=== PATIENT | female | born 1965 | race Caucasian/White ===

== ENCOUNTER → 2016-08-05 | Outpatient (REF) | payer OTHER, BC ==
[2016-08-05 12:24] LABS: ALBUMIN 4.1 GM/DL (3.2-5.2); ALBUMIN/GLOBULIN RATIO 1.52 (1.00-1.93); ALKALINE PHOSPHATASE 52 U/L (45-117); ALT/SGPT 19 U/L (12-78); ANION GAP 7 MEQ/L (8-16); AST/SGOT 10 U/L (15-37); BILIRUBIN,TOTAL 1.1 MG/DL (0.2-1.0); BLOOD UREA NITROGEN 15 MG/DL (7-18); CARBON DIOXIDE LEVEL 29 MEQ/L (21-32); CHLORIDE LEVEL 105 MEQ/L (98-107); CHOLESTEROL LEVEL 164 MG/DL (<200); CREATININE FOR GFR 0.81 MG/DL (0.55-1.02); GLOMERULAR FILTRATION RATE > 60.0 (>51); GLUCOSE, FASTING 109 MG/DL (70-105); POTASSIUM SERUM 4.3 MEQ/L (3.5-5.1); SODIUM LEVEL 141 MEQ/L (136-145); TOTAL PROTEIN 6.8 GM/DL (6.4-8.2); TRIGLYCERIDES LEVEL 112 MG/DL (<150)
[2016-08-05 12:29] LABS: MEAN CORPUSCULAR HEMOGLOBIN 29.8 pg (27.0-33.0); MEAN CORPUSCULAR VOLUME 87.5 fl (80.0-96.0); RED CELL DISTRIBUTION WIDTH 12.9 % (11.5-14.5); WHITE BLOOD COUNT 6.6 K/mm3 (4.0-10.0)
== END ==
LOC: M SFHCCLAY 08:12
PROVIDERS: ATTEND Family Medicine
DX: N02.8 Recurrent and persistent hematuria with other morphologic changes (principal); I10 Essential (primary) hypertension; E78.00 Pure hypercholesterolemia, unspecified

== ENCOUNTER → 2016-11-15 | Outpatient (REF) | payer OTHER, BC ==
[2016-11-15 12:07] LABS: ANION GAP 5 MEQ/L (8-16); BLOOD UREA NITROGEN 14 MG/DL (7-18); CALCIUM LEVEL 8.9 MG/DL (8.5-10.1); CARBON DIOXIDE LEVEL 32 MEQ/L (21-32); CHLORIDE LEVEL 103 MEQ/L (98-107); CREATININE FOR GFR 0.68 MG/DL (0.55-1.02); GLOMERULAR FILTRATION RATE > 60.0 (>51); GLUCOSE, FASTING 96 MG/DL (70-105); POTASSIUM SERUM 4.7 MEQ/L (3.5-5.1); SODIUM LEVEL 140 MEQ/L (136-145)
== END ==
LOC: M SFHCCLAY 08:07
PROVIDERS: ATTEND Family Medicine
DX: R73.01 Impaired fasting glucose (principal)

== ENCOUNTER → 2017-02-28 | Outpatient (CLI) | payer OTHER ==
--- NOTE | 2017-02-28 15:36 | REPMRS ---
Patient History The patient states she had a clinical breast exam in 11/04 No known family history of cancer. Took hormonal contraceptives for 10 years. Digital Woman Screen Mammo: February 28, 2017 - Exam #: [id number] Bilateral CC and MLO view(s) were taken. Technologist: Renetta Britton, Technologist Prior study comparison: February 20, 2016, digital woman screen mammo performed at [facility]. February 14, 2015, digital woman screen mammo performed at [facility]. FINDINGS: There are scattered fibroglandular densities. There has been no change in the appearance of the mammogram from the prior studies. There is a mild amount of residual fibroglandular tissue which is fairly symmetric. There is no interval development of dominant mass, architectural distortion, or clustered microcalcification suggestive of malignancy. ASSESSMENT: BI-RADS/ACR category 1 mammogram. Negative. Recommendation Routine screening mammogram in 1 year (for women over age 40). This mammogram was interpreted with the aid of an FDA-approved computer-aided dectection system. Electronically Signed By: Anand Lemons MD 02/28/17 [id number]
== END ==
LOC: M WHC 15:04
PROVIDERS: ATTEND Obstetrics & Gynecology
DX: Z12.31 Encounter for screening mammogram for malignant neoplasm of breast (principal)

== ENCOUNTER → 2017-07-16 | Outpatient (REF) | payer OTHER, BC ==
[2017-07-16 12:26] LABS: ALBUMIN 3.7 GM/DL (3.2-5.2); ALBUMIN/GLOBULIN RATIO 1.32 (1.00-1.93); ALKALINE PHOSPHATASE 45 U/L (45-117); ALT/SGPT 37 U/L (12-78); ANION GAP 7 MEQ/L (8-16); AST/SGOT 25 U/L (7-37); BILIRUBIN,TOTAL 1.2 MG/DL (0.2-1.0); BLOOD UREA NITROGEN 13 MG/DL (7-18); CALCIUM LEVEL 8.7 MG/DL (8.5-10.1); CARBON DIOXIDE LEVEL 29 MEQ/L (21-32); CHLORIDE LEVEL 104 MEQ/L (98-107); CHOLESTEROL LEVEL 186 MG/DL (<200); CREATININE FOR GFR 0.64 MG/DL (0.55-1.02); GLOMERULAR FILTRATION RATE > 60.0 (>51); GLUCOSE, FASTING 97 MG/DL (70-105); POTASSIUM SERUM 4.7 MEQ/L (3.5-5.1); SODIUM LEVEL 140 MEQ/L (136-145); TOTAL PROTEIN 6.5 GM/DL (6.4-8.2); TRIGLYCERIDES LEVEL 156 MG/DL (<150)
[2017-07-16 13:14] LABS: ESTIMATED AVERAGE GLUCOSE 120 MG/DL (60-110)
== END ==
LOC: M SFHCCLAY 08:25
DX: I10 Essential (primary) hypertension (principal); E78.00 Pure hypercholesterolemia, unspecified; R73.01 Impaired fasting glucose; Z11.59 Encounter for screening for other viral diseases; N02.8 Recurrent and persistent hematuria with other morphologic changes

== ENCOUNTER → 2018-03-10 | Outpatient (CLI) | payer OTHER, BC | LOC: M WHC 15:27 | DX: Z12.31 Encounter for screening mammogram for malignant neoplasm of breast (principal); Z92.0 Personal history of contraception | CPT/HCPCS: 77067 ==

== ENCOUNTER → 2018-08-06 | Outpatient (CLI) | payer BC ==
--- NOTE | 2018-08-07 02:02 | REP ---
Clinical: Left hip pain. Technique: Neutral and frog lateral views of the left hip. Findings: Mild age-related arthritic changes include increased sclerosis to the acetabular roof with minimal joint space narrowing. Proximal femur appears intact and relatively normal. No periarticular calcifications or loose bodies identified. Surrounding soft tissues are unremarkable. Impression: Mild age-related degenerative changes.
== END ==
LOC: M CLY 14:43
PROVIDERS: ATTEND Family Medicine
DX: M25.552 Pain in left hip (principal)

== ENCOUNTER → 2019-02-04 | Outpatient (REF) | payer BC ==
[2019-02-04 11:48] LABS: APPEARANCE, URINE CLEAR (CLEAR); BACTERIA, URINE AUTO NEGATIVE (NEGATIVE); BILIRUBIN, URINE AUTO NEGATIVE (NEGATIVE); BLOOD, URINE BLOOD NEGATIVE (NEGATIVE); COLOR, URINE YELLOW (YELLOW); GLUCOSE, URINE (UA) AUTO NEGATIVE (NEGATIVE); KETONE, URINE AUTO NEGATIVE (NEGATIVE); LEUKOCYTE ESTERASE, URINE AUTO NEGATIVE (NEGATIVE); MUCUS, URINE SMALL (NEGATIVE); NITRITE, URINE AUTO NEGATIVE (NEGATIVE); PROTEIN, URINE AUTO NEGATIVE (NEGATIVE); RBC, URINE AUTO 1 /HPF (0-3); SPECIFIC GRAVITY URINE AUTO 1.021 (1.002-1.035); SQUAMOUS EPITHELIAL CELL UR AU 1 /HPF (0-6); UROBILINOGEN, URINE AUTO 0.2 mg/dL (0.0-2.0); WBC, URINE AUTO 1 /HPF (0-3)
[2019-02-04 11:51] LABS: HEMATOCRIT 42.2 % (36.0-47.0); HEMOGLOBIN 14.3 g/dl (12.0-15.5); MEAN CORPUSCULAR HEMOGLOBIN 30.8 pg (27.0-33.0); MEAN CORPUSCULAR HGB CONC 33.9 g/dl (32.0-36.5); MEAN CORPUSCULAR VOLUME 90.8 fl (80.0-96.0); PLATELET COUNT, AUTOMATED 274 10^3/uL (150-450); RED BLOOD COUNT 4.65 10^6/uL (4.00-5.40); WHITE BLOOD COUNT 4.2 10^3/uL (4.0-10.0)
[2019-02-04 12:25] LABS: ALT/SGPT 26 U/L (12-78); BILIRUBIN,TOTAL 1.3 MG/DL (0.2-1.0); BLOOD UREA NITROGEN 13 MG/DL (7-18); CALCIUM LEVEL 9.3 MG/DL (8.5-10.1); CARBON DIOXIDE LEVEL 29 MEQ/L (21-32); CHLORIDE LEVEL 105 MEQ/L (98-107); CHOLESTEROL LEVEL 166 MG/DL (<200); CHOLESTEROL RISK RATIO 3.688 (<5); CREATININE FOR GFR 0.68 MG/DL (0.55-1.30); GLOMERULAR FILTRATION RATE > 60.0 (>51); GLUCOSE, FASTING 107 MG/DL (70-100); HDL CHOLESTEROL 45 MG/DL (>40); LDL CHOLESTEROL 103 MG/DL (<100); NON-HDL-C 121 MG/DL; POTASSIUM SERUM 4.6 MEQ/L (3.5-5.1); SODIUM LEVEL 141 MEQ/L (136-145); TOTAL PROTEIN 6.9 GM/DL (6.4-8.2); TRIGLYCERIDES LEVEL 88 MG/DL (<150)
== END ==
LOC: M SFHCCLAY 08:25
PROVIDERS: ATTEND Family Medicine
DX: N02.8 Recurrent and persistent hematuria with other morphologic changes (principal); I10 Essential (primary) hypertension; E78.00 Pure hypercholesterolemia, unspecified

== ENCOUNTER 2019-04-20 07:05 | Day surgery (SDC) | payer BC ==
[~2019-04-20] VITALS: Ht 167.6 cm; Wt 95.3 kg
[~2019-04-20 07:05] MED LIST: ALLE180T33 PO; LISI-672 PO; NS 1,000 ML IV ONE; PRAV40TA2 PO; VITA400T15 PO
[2019-04-20] MEDS ORDERED: LIDOCAINE 2% INJ 100 MG/5 ML SDV (FOR ANES.) As Ordered ONE (07:32)
[2019-04-20] MEDS ORDERED: propofoL 200 MG/20 ML VIAL As Ordered ONE ×3 (07:33→08:04)
--- NOTE | 2019-04-20 08:10 | ROOR ---
Patient Name: Long Alonzo Procedure Date: 04/20/2019 7:29 AM Date of : 1965 Age: 53 Room: [facility] Gender: Female Note Status: Finalized Procedure: Total Colonoscopy to Cecum + Cold Snare Polypectomy + Biopsies Indications: Screening for colorectal malignant neoplasm Providers: Jose R Ward MD Referring MD: Musa Manzano MD Requesting Provider: Medicines: Monitored Anesthesia Care Complications: No immediate complications. Procedure: Pre-Anesthesia Assessment: - The heart rate, respiratory rate, oxygen saturations, blood pressure, adequacy of pulmonary ventilation, and response to care were monitored throughout the procedure. The Colonoscope was introduced through the anus and advanced to the cecum, identified by appendiceal orifice and ileocecal valve. The colonoscopy was performed without difficulty. The patient tolerated the procedure well. The quality of the bowel preparation was excellent. Findings: The perianal and digital rectal examinations were normal. Non-bleeding internal hemorrhoids were found during retroflexion. The hemorrhoids were medium-sized. A localized area of mildly inflamed and nodular mucosa was found at the anus. Biopsies were taken with a cold forceps for histology. A small polyp was found in the proximal ascending colon. The polyp was sessile. The polyp was removed with a cold snare. Resection and retrieval were complete. A small polyp was found in the transverse colon. The polyp was sessile. The polyp was removed with a cold snare. Resection and retrieval were complete. The exam was otherwise without abnormality on direct and retroflexion views. Impression: - Non-bleeding internal hemorrhoids. - Inflamed and nodular mucosa at the anus. Biopsied. - One small polyp in the proximal ascending colon, removed with a cold snare. Resected and retrieved. - One small polyp in the transverse colon, removed with a cold snare. Resected and retrieved. - The examination was otherwise normal on direct and retroflexion views. - The exam was otherwise normal to the cecum. Recommendation: - Patient has a contact number available for emergencies. The signs and symptoms of potential delayed complications were discussed with the patient. Return to normal activities tomorrow. Written discharge instructions were provided to the patient. - High fiber diet. - Discharge patient to home. - Continue present medications. - Await pathology results. - Telephone GI clinic for pathology results in 1 week. - Repeat colonoscopy in 5 years for surveillance based on pathology results. - Return to referring physician. - Refer to a surgeon at appointment to be scheduled. - The findings and recommendations were discussed with the patient's family. Jose R Ward MD Jose R Ward MD 04/20/2019 8:10:15 AM Electronically signed by Jose R Ward MD Number of Addenda: 0 Note Initiated On: 04/20/2019 7:29 AM Estimated Blood Loss: Estimated blood loss: none.
[2019-04-20 08:30] VITALS: BP 110/75
== END 2019-04-20 08:46 | disposition home or self-care (01) ==
LOC: M OPP 07:05
PROVIDERS: ATTEND Internal Medicine Gastroenterology
DX: Z12.11 Encounter for screening for malignant neoplasm of colon (principal); K64.8 Other hemorrhoids; K62.89 Other specified diseases of anus and rectum; D12.2 Benign neoplasm of ascending colon; D12.3 Benign neoplasm of transverse colon; E78.5 Hyperlipidemia, unspecified; K58.9 Irritable bowel syndrome, unspecified; G54.0 Brachial plexus disorders; M19.90 Unspecified osteoarthritis, unspecified site; G62.9 Polyneuropathy, unspecified; M54.2 Cervicalgia; N03.9 Chronic nephritic syndrome with unspecified morphologic changes; Z91.018 Allergy to other foods; Z88.5 Allergy status to narcotic agent; Z88.2 Allergy status to sulfonamides; Z79.899 Other long term (current) drug therapy

== ENCOUNTER → 2019-05-06 | Outpatient (CLI) | payer BC ==
[~2019-05-06] MED LIST changes: -NS 1,000 ML IV ONE
--- NOTE | 2019-05-06 17:48 | REPMRS ---
Patient History The patient states she had a clinical breast exam in 01/2019. No known family history of cancer. Took hormonal contraceptives for 10 years. Digital Woman Screen Mammo: May 06, 2019 - Exam #: [id number] Bilateral CC and MLO view(s) were taken. Technologist: Tayler Neal Technologist Prior study comparison: March 10, 2018, bilateral digital woman screen mammo performed at [facility]. February 28, 2017, digital woman screen mammo performed at [facility]. February 20, 2016, digital woman screen mammo performed at [facility]. FINDINGS: There are scattered fibroglandular densities. There has been no change in the appearance of the mammogram from the prior studies. There is a mild amount of scattered fibroglandular density which is fairly symmetric. There is no interval development of dominant mass, architectural distortion, or grouped microcalcification suggestive of malignancy. 3-D tomosynthesis shows no additional findings. Assessment: BI-RADS/ACR category 1 mammogram. Negative Mammogram. Recommendation Routine screening mammogram of both breasts in 1 year (for women over age 40). This patient's Lifetime Breast Cancer Risk is estimated at 12.0 %. This mammogram was interpreted with the aid of an FDA-approved computer-aided dectection system. Electronically Signed By: Elijah Julian MD 05/06/19 [id number]
== END ==
LOC: M WHC 16:24
PROVIDERS: ATTEND Obstetrics & Gynecology
DX: Z12.31 Encounter for screening mammogram for malignant neoplasm of breast (principal); Z92.0 Personal history of contraception

== ENCOUNTER → 2020-01-19 | Outpatient (REF) | payer BC ==
[~2020-01-19] MED LIST changes: -LISI-672 PO; +LISI30TA4 PO
[2020-01-19 13:03] LABS: HEMATOCRIT 43.5 % (36.0-47.0); HEMOGLOBIN 14.5 g/dl (12.0-15.5); MEAN CORPUSCULAR HEMOGLOBIN 30.5 pg (27.0-33.0); MEAN CORPUSCULAR HGB CONC 33.3 g/dl (32.0-36.5); MEAN CORPUSCULAR VOLUME 91.4 fl (80.0-96.0); PLATELET COUNT, AUTOMATED 314 10^3/uL (150-450); RED BLOOD COUNT 4.76 10^6/uL (4.00-5.40); WHITE BLOOD COUNT 4.6 10^3/uL (4.0-10.0)
[2020-01-19 13:04] LABS: APPEARANCE, URINE CLEAR (CLEAR); BACTERIA, URINE AUTO NEGATIVE (NEGATIVE); BILIRUBIN, URINE AUTO NEGATIVE (NEGATIVE); BLOOD, URINE BLOOD NEGATIVE (NEGATIVE); COLOR, URINE YELLOW (YELLOW); GLUCOSE, URINE (UA) AUTO NEGATIVE (NEGATIVE); KETONE, URINE AUTO NEGATIVE (NEGATIVE); LEUKOCYTE ESTERASE, URINE AUTO NEGATIVE (NEGATIVE); MUCUS, URINE SMALL (NEGATIVE); NITRITE, URINE AUTO NEGATIVE (NEGATIVE); PROTEIN, URINE AUTO NEGATIVE (NEGATIVE); RBC, URINE AUTO 0 /HPF (0-3); SPECIFIC GRAVITY URINE AUTO 1.019 (1.002-1.035); SQUAMOUS EPITHELIAL CELL UR AU 1 /HPF (0-6); UROBILINOGEN, URINE AUTO 0.2 mg/dL (0.0-2.0); WBC, URINE AUTO 0 /HPF (0-3)
[2020-01-19 13:24] LABS: BLOOD UREA NITROGEN 15 MG/DL (7-18); CARBON DIOXIDE LEVEL 31 MEQ/L (21-32); CHLORIDE LEVEL 104 MEQ/L (98-107); CHOLESTEROL LEVEL 196 MG/DL (<200); CREATININE FOR GFR 0.74 MG/DL (0.55-1.30); GLOMERULAR FILTRATION RATE > 60.0 (>51); GLUCOSE, FASTING 105 MG/DL (70-100); HDL CHOLESTEROL 40 MG/DL (>40); LDL CHOLESTEROL 115 MG/DL (<100); MAGNESIUM LEVEL 2.1 MG/DL (1.8-2.4); NON-HDL-C 156 MG/DL; POTASSIUM SERUM 4.3 MEQ/L (3.5-5.1); SODIUM LEVEL 137 MEQ/L (136-145); TRIGLYCERIDES LEVEL 205 MG/DL (<150)
== END ==
LOC: M SFHCCLAY 07:56
PROVIDERS: ATTEND Family Medicine
DX: I10 Essential (primary) hypertension (principal); R00.2 Palpitations

== ENCOUNTER → 2020-01-31 | Outpatient (REF) | payer BC ==
[~2020-01-31] MED LIST changes: +LISI-538 PO; +PRIL20TA2 PO
[2020-02-01 12:03] LABS: APPEARANCE, URINE CLEAR (CLEAR); BACTERIA, URINE AUTO NEGATIVE (NEGATIVE); BILIRUBIN, URINE AUTO NEGATIVE (NEGATIVE); BLOOD, URINE BLOOD NEGATIVE (NEGATIVE); COLOR, URINE STRAW (YELLOW); GLUCOSE, URINE (UA) AUTO NEGATIVE (NEGATIVE); KETONE, URINE AUTO NEGATIVE (NEGATIVE); LEUKOCYTE ESTERASE, URINE AUTO NEGATIVE (NEGATIVE); NITRITE, URINE AUTO NEGATIVE (NEGATIVE); PROTEIN, URINE AUTO NEGATIVE (NEGATIVE); RBC, URINE AUTO 0 /HPF (0-3); SQUAMOUS EPITHELIAL CELL UR AU 0 /HPF (0-6); UROBILINOGEN, URINE AUTO 0.2 mg/dL (0.0-2.0); WBC, URINE AUTO 1 /HPF (0-3)
== END ==
LOC: M SFHCCLAY 14:53
PROVIDERS: ATTEND Physician Assistant
DX: R35.0 Frequency of micturition (principal)

== ENCOUNTER → 2020-02-28 | Outpatient (REF) | payer BC | LOC: M SFHCCLAY 11:18 | PROVIDERS: ATTEND Family Medicine | DX: N95.0 Postmenopausal bleeding (principal); N83.209 Unspecified ovarian cyst, unspecified side ==

== ENCOUNTER → 2020-04-12 | Outpatient (REF) | payer BC | LOC: M SFHCCLAY 16:24 | PROVIDERS: ATTEND Family Medicine | DX: K29.81 Duodenitis with bleeding (principal) ==

== ENCOUNTER → 2020-05-09 | Outpatient (REF) | payer BC | LOC: M SFHCWAGY 13:37 | PROVIDERS: ATTEND Obstetrics & Gynecology | DX: Z12.4 Encounter for screening for malignant neoplasm of cervix (principal); Z01.419 Encounter for gynecological examination (general) (routine) without abnormal findings ==

== ENCOUNTER → 2020-05-19 | Outpatient (CLI) | payer BC | LOC: M LABSMTC 11:55 | PROVIDERS: ATTEND Anesthesiology | DX: Z01.812 Encounter for preprocedural laboratory examination (principal); Z20.828 Contact with and (suspected) exposure to other viral communicable diseases | CPT/HCPCS: C9803; U0003 ==

== ENCOUNTER → 2020-05-19 | Outpatient (REF) | payer BC ==
[2020-05-19 11:55] LABS: HEMOGLOBIN 14.4 g/dl (12.0-15.5); MEAN CORPUSCULAR HEMOGLOBIN 29.3 pg (27.0-33.0); MEAN CORPUSCULAR HGB CONC 32.7 g/dl (32.0-36.5); MEAN CORPUSCULAR VOLUME 89.4 fl (80.0-96.0); PLATELET COUNT, AUTOMATED 319 10^3/uL (150-450); RED BLOOD COUNT 4.92 10^6/uL (4.00-5.40); WHITE BLOOD COUNT 5.7 10^3/uL (4.0-10.0)
[2020-05-19 12:17] LABS: BLOOD UREA NITROGEN 13 MG/DL (7-18); CARBON DIOXIDE LEVEL 32 MEQ/L (21-32); CHLORIDE LEVEL 105 MEQ/L (98-107); CREATININE FOR GFR 0.83 MG/DL (0.55-1.30); GLOMERULAR FILTRATION RATE > 60.0 (>51); GLUCOSE, FASTING 112 MG/DL (70-100); POTASSIUM SERUM 4.5 MEQ/L (3.5-5.1); SODIUM LEVEL 140 MEQ/L (136-145)
== END ==
LOC: M SFHCCLAY 07:52
PROVIDERS: ATTEND Family Medicine
DX: I10 Essential (primary) hypertension (principal); N02.8 Recurrent and persistent hematuria with other morphologic changes; N95.0 Postmenopausal bleeding

== ENCOUNTER 2020-05-24 07:37 | Day surgery (SDC) | payer BC ==
[~2020-05-24] VITALS: Ht 170.2 cm; Wt 100.2 kg
[~2020-05-24 07:37] MED LIST changes: -LISI-538 PO; +LR 1,000 ML IV SCH
[2020-05-24] MEDS ORDERED: LISI-538 PO (07:58)
[2020-05-24 08:12] LABS: HEMATOCRIT 44.7 % (36.0-47.0); HEMOGLOBIN 14.9 g/dl (12.0-15.5); MEAN CORPUSCULAR HEMOGLOBIN 29.8 pg (27.0-33.0); MEAN CORPUSCULAR HGB CONC 33.3 g/dl (32.0-36.5); MEAN CORPUSCULAR VOLUME 89.4 fl (80.0-96.0); PLATELET COUNT, AUTOMATED 283 10^3/uL (150-450); WHITE BLOOD COUNT 5.2 10^3/uL (4.0-10.0)
[2020-05-24] MEDS ORDERED: LIDOCAINE 2% 100MG/5ML SDV (FOR ANES.) As Ordered ONE (08:17)
[2020-05-24] MEDS ORDERED: propofoL 200 MG/20 ML VIAL As Ordered ONE (08:17)
[2020-05-24] MEDS ORDERED: fentaNYL 100 MCG/2 ML INJECTION (J3010) As Ordered ONE (08:18)
[2020-05-24] MEDS ORDERED: MIDAZOLAM INJ 2MG/2ML VIAL (J2250 PER 1MG) As Ordered ONE (08:18)
[2020-05-24] MEDS ORDERED: SILVER NITRATE APPLICATOR As Ordered ONE (08:29)
[2020-05-24] MEDS ORDERED: LIDOCAINE 1% SDV 30ML VIAL As Ordered ONE (08:29)
[2020-05-24] MEDS ORDERED: ONDANSETRON 4MG/2ML VIAL As Ordered ONE (09:04)
[2020-05-24] MEDS ORDERED: dexameTHASONE 4 MG/ML 1ML VIAL (J1100 PER 1MG) As Ordered ONE (09:04)
[2020-05-24] MEDS ORDERED: KETOROLAC 60MG 2ML VIAL As Ordered ONE (09:04)
[2020-05-24] MEDS ORDERED: ePHEDrine SULFATE 25 MG/5 ML(5MG/ML) SYRINGE As Ordered ONE (09:05)
--- NOTE | 2020-05-24 09:41 | ROOPDOC ---
[facility] Report Of Operation Report of Operation DATE OF PROCEDURE: 05/24/2020 PREOPERATIVE DIAGNOSIS: Postmenopausal bleeding POSTOPERATIVE DIAGNOSIS: Postmenopausal bleeding PROCEDURE PERFORMED: Hysteroscopy, dilatation and curettage. SURGEON: Luke Gonzales DO NUCLEAR SECURITY OFFICER: None. ANESTHESIA TYPE: General via LMA. SPECIMENS SENT TO PATHOLOGY: Endometrial curettings, endometrial biopsy ESTIMATED BLOOD LOSS: 10 mL. FLUIDS REPLACED: 500 mL lactated Ringer's. DRAINS: In and out urinary catheter. URINE OUTPUT: 20 mL. COMPLICATIONS: None. PREOPERATIVE ANTIBIOTICS: None indicated. INTRAOPERATIVE FINDINGS: Predominantly atrophic appearance inside the endometrial cavity. Scant amount of endometrial tissue. No endometrial mass INDICATIONS: The patient is a 54-year-old with postmenopausal bleeding PROCEDURE: The patient was counseled and consented on the risks, benefits, indications, and alternatives of the procedure. Informed consent was obtained. She was taken to the operating room with an IV running and placed on the operating room table in the dorsal supine position. General anesthesia was administered and the airway secured without any difficulty. She was then placed in the high lithotomy position. She was prepped and draped in normal sterile fashion. A timeout was performed per protocol. The bladder was drained with a sterile in and out catheter. A sterile speculum was placed with good visualization of the cervix. The cervix was grasped with a single-toothed tenaculum and downward traction was applied. The cervix was then sequentially dilated with Fred dilators up to a #18. The hysteroscope was placed transcervically into the intrauterine cavity with the findings noted above, then the hysteroscope was removed after taking leasing representative images. The curette was placed transcervically into the intrauterine cavity and endometrial decidual tissue was curetted until there was gritty texture noted throughout the cavity, indicating no more decidualized tissue. An endometrial Pipelle was used to obtain tissue in 3 passes. The bleeding from the os after removal of the curette was minimal. The tenaculum was removed. The tenaculum sites were cauterized with silver nitrate. All instruments were removed from the vagina. Sponge, needle, and instrument counts were correct per protocol. The patient tolerated the entire procedure well. She was transferred to the PACU in good and stable condition. LUKE GONZALES DO May 24, 2020 09:41
[2020-05-24] MEDS ORDERED: LR 1,000 ML IV SCH (10:00)
[2020-05-24] MEDS ORDERED: fentaNYL 100 MCG/2 ML INJECTION (J3010) IV PRN (10:00)
[2020-05-24] MEDS ORDERED: PERCOCET 5MG/325MG TAB PO PRN (10:00)
[2020-05-24] MEDS ORDERED: ONDANSETRON 4MG/2ML VIAL IV PRN (10:00)
[2020-05-24] MEDS ORDERED: METOCLOPRAMIDE INJ 10MG/2ML VIAL (J2765 PER 1) IV PRN (10:00)
[2020-05-24 12:05] VITALS: BP 118/65
== END 2020-05-24 12:05 | disposition home or self-care (01) ==
LOC: M SDC 07:37
PROVIDERS: ATTEND Obstetrics & Gynecology
DX: N95.0 Postmenopausal bleeding (principal); I10 Essential (primary) hypertension; E78.5 Hyperlipidemia, unspecified; K58.8 Other irritable bowel syndrome; K21.9 Gastro-esophageal reflux disease without esophagitis; Z79.899 Other long term (current) drug therapy; Z91.018 Allergy to other foods; Z88.8 Allergy status to other drugs, medicaments and biological substances; Z88.2 Allergy status to sulfonamides
CPT/HCPCS: 36415; 58558; 85027; 86850; 86900; 86901; 88305; J1100; J1885; J2250; J2405; J3010

== ENCOUNTER → 2020-06-26 | Outpatient (CLI) | payer BC ==
[~2020-06-26] MED LIST changes: +LISI-538 PO; -LR 1,000 ML IV SCH
--- NOTE | 2020-06-26 11:54 | REP ---
INDICATION: N83.291. COMPARISON: None. TECHNIQUE: Transabdominal and transvaginal scanning were performed. FINDINGS: Uterine dimensions are normal at 7.8 x 4.1 x 4.7 cm. Endometrial echo is 0.7 cm thick and centrally placed. No free fluid is seen in the cul-de-sac. Visualized bladder mascorro are smooth. There is evidence of a 3.0 x 2.4 x 3.0 cm fibroid along the right side of the uterus posteriorly. Echogenic foci in the lower uterine segment consistent with nabothian cysts. The right ovary has dimensions of 4.8 x 2.9 x 3.6 cm. It's Doppler flow is normal with a resistive index of 0.45. There is a simple cyst in right ovary measuring 4.2 x 3.6 x 2.8 cm. The cyst contains 1 thin septation no mural nodularity or thickening. The left ovary dimensions are normal as well at 2.0 x 1.7 x 1.3 cm. It's Doppler flow was normal in the left ovary. IMPRESSION: There is a 4.2 cm septated cyst in the right ovary. Uterine myometrium is somewhat heterogeneous and a 3.0 cm fibroid is visible on the right posteriorly.. <Electronically signed by Elijah Julian > 06/26/20 [id number]
--- NOTE | 2020-06-26 15:10 | REPMRS ---
Patient History The patient states she has not had a clinical breast exam in over a year. No known family history of cancer. Took hormonal contraceptives for 10 years. Digital Woman Screen Mammo: June 26, 2020 - Exam #: [id number] Bilateral CC and MLO view(s) were taken. Technologist: Sonia Soto, Technologist Prior study comparison: May 06, 2019, bilateral digital woman screen mammo performed at [facility]. March 10, 2018, bilateral digital woman screen mammo performed at [facility]. February 28, 2017, digital woman screen mammo performed at [facility]. FINDINGS: The breast tissue is almost entirely fat. The Volpara volumetric breast density category is: A. There has been no change in the appearance of the mammogram from the prior studies. There is no interval development of dominant mass, architectural distortion, or grouped microcalcification typical of malignancy. 3-D tomosynthesis shows no additional findings. Assessment: BI-RADS/ACR category 1 mammogram. Negative Mammogram. Recommendation Routine screening mammogram of both breasts in 1 year (for women over age 40). This patient's [facility] Lifetime Breast Cancer RIsk is estimated at 12.0 %. This mammogram was interpreted with the aid of an FDA-approved computer-aided dectection system. Electronically Signed By: Elijah Julian MD 06/26/20 1521
== END ==
LOC: M WHC 09:29
PROVIDERS: ATTEND Obstetrics & Gynecology
DX: N83.291 Other ovarian cyst, right side (principal); Z12.31 Encounter for screening mammogram for malignant neoplasm of breast

== ENCOUNTER → 2020-08-07 | Outpatient (REF) | payer BC ==
[~2020-08-07] MED LIST changes: -LISI-538 PO; +LISI20TA33 PO
[2020-08-07 12:46] LABS: BLOOD UREA NITROGEN 13 MG/DL (7-18); CALCIUM LEVEL 9.2 MG/DL (8.5-10.1); CARBON DIOXIDE LEVEL 29 MEQ/L (21-32); CHLORIDE LEVEL 104 MEQ/L (98-107); GLOMERULAR FILTRATION RATE > 60.0 (>51); GLUCOSE, FASTING 109 MG/DL (70-100); POTASSIUM SERUM 4.4 MEQ/L (3.5-5.1); SODIUM LEVEL 140 MEQ/L (136-145)
[2020-08-07 14:09] LABS: HEMOGLOBIN A1c 5.5 %
[2020-08-07 16:52] LABS: APPEARANCE, URINE CLEAR (CLEAR); BACTERIA, URINE AUTO NEGATIVE (NEGATIVE); BILIRUBIN, URINE AUTO NEGATIVE (NEGATIVE); BLOOD, URINE BLOOD NEGATIVE (NEGATIVE); COLOR, URINE YELLOW (YELLOW); GLUCOSE, URINE (UA) AUTO NEGATIVE (NEGATIVE); KETONE, URINE AUTO NEGATIVE (NEGATIVE); LEUKOCYTE ESTERASE, URINE AUTO NEGATIVE (NEGATIVE); NITRITE, URINE AUTO NEGATIVE (NEGATIVE); PROTEIN, URINE AUTO NEGATIVE (NEGATIVE); RBC, URINE AUTO 0 /HPF (0-3); SPECIFIC GRAVITY URINE AUTO 1.014 (1.002-1.035); SQUAMOUS EPITHELIAL CELL UR AU 1 /HPF (0-6); UROBILINOGEN, URINE AUTO 0.2 mg/dL (0.0-2.0); WBC, URINE AUTO 2 /HPF (0-3)
== END ==
LOC: M SFHCCLAY 07:53
PROVIDERS: ATTEND Family Medicine
DX: R73.02 Impaired glucose tolerance (oral) (principal); R31.29 Other microscopic hematuria

== ENCOUNTER → 2020-09-26 | Outpatient (REF) | payer BC | LOC: M PLALAB 10:10 | PROVIDERS: ATTEND Obstetrics & Gynecology | DX: N83.202 Unspecified ovarian cyst, left side (principal) ==

== ENCOUNTER → 2020-09-26 | Outpatient (CLI) | payer BC ==
--- NOTE | 2020-09-26 11:11 | REP ---
INDICATION: N83.202 L OVARY CYST. COMPARISON: 06/26/2020. TECHNIQUE: Transabdominal and transvaginal scanning performed. FINDINGS: Uterine dimensions are 7.0 x 3.6 x 4.4 cm. Endometrial echo is 5 mm in AP dimension and demonstrates very ill-defined margins. The myometrium is again quite heterogeneous in echotexture which may represent underlying fibroid or adenomyosis changes. A somewhat focal ill-defined area of heterogeneity posteriorly is again seen measuring 2.4 x 1.8 x 2.0 cm. Multiple echogenic foci are seen in the lower uterine segment which may represent calcifications. The bladder measures 10.8 x 6.6 x 8.9 cm. The right ovary has dimensions of 4.8 x 3.4 x 3.8 cm. The left ovary dimensions are 1.4 x 2.3 x 1.2 cm. Blood flow is seen in each ovary with duplex Doppler evaluation, with no torsion. Once again in the right ovary there is a cyst containing a septation measuring 4.3 x 3.3 x 3.3 cm. This is essentially unchanged. No free fluid is seen in the cul-de-sac. IMPRESSION: Stable pelvic ultrasound as discussed in detail above. A cyst with a septation in the right ovary measures 4.3 x 3.3 x 3.3 cm, unchanged. Recommend continued follow-up. <Electronically signed by Anand Lemons > 09/26/20 [id number]
== END ==
LOC: M WHC 09:27
PROVIDERS: ATTEND Obstetrics & Gynecology
DX: N83.202 Unspecified ovarian cyst, left side (principal)

== ENCOUNTER → 2021-01-29 | Outpatient (REF) | payer BC ==
[2021-01-29 12:22] LABS: APPEARANCE, URINE CLEAR (CLEAR); BACTERIA, URINE AUTO NEGATIVE (NEGATIVE); BILIRUBIN, URINE AUTO NEGATIVE (NEGATIVE); BLOOD, URINE BLOOD 1+ (NEGATIVE); COLOR, URINE YELLOW (YELLOW); GLUCOSE, URINE (UA) AUTO NEGATIVE (NEGATIVE); KETONE, URINE AUTO NEGATIVE (NEGATIVE); LEUKOCYTE ESTERASE, URINE AUTO NEGATIVE (NEGATIVE); NITRITE, URINE AUTO NEGATIVE (NEGATIVE); PROTEIN, URINE AUTO NEGATIVE (NEGATIVE); RBC, URINE AUTO 1 /HPF (0-3); SQUAMOUS EPITHELIAL CELL UR AU 1 /HPF (0-6); UROBILINOGEN, URINE AUTO 0.2 mg/dL (0.0-2.0); WBC, URINE AUTO 0 /HPF (0-3)
[2021-01-29 13:16] LABS: ALBUMIN 3.9 GM/DL (3.2-5.2); ALT/SGPT 31 U/L (12-78); BILIRUBIN,TOTAL 1.5 MG/DL (0.2-1.0); BLOOD UREA NITROGEN 14 MG/DL (7-18); CALCIUM LEVEL 9.1 MG/DL (8.5-10.1); CARBON DIOXIDE LEVEL 28 MEQ/L (21-32); CHLORIDE LEVEL 107 MEQ/L (98-107); CREATININE FOR GFR 0.71 MG/DL (0.55-1.30); GLOMERULAR FILTRATION RATE > 60.0 (>51); GLUCOSE, FASTING 109 MG/DL (70-100); POTASSIUM SERUM 4.6 MEQ/L (3.5-5.1); SODIUM LEVEL 140 MEQ/L (136-145); TOTAL PROTEIN 6.7 GM/DL (6.4-8.2)
== END ==
LOC: M SFHCCLAY 08:03
PROVIDERS: ATTEND Family Medicine
DX: E78.00 Pure hypercholesterolemia, unspecified (principal); I10 Essential (primary) hypertension

== ENCOUNTER → 2021-02-01 | Outpatient (REF) | payer BC | LOC: M SFHCCLAY 09:40 | PROVIDERS: ATTEND Family Medicine | DX: N83.201 Unspecified ovarian cyst, right side (principal); Z78.0 Asymptomatic menopausal state ==

== ENCOUNTER → 2021-02-09 | Outpatient (REF) | payer BC ==
[2021-02-09 12:33] LABS: LUTEINIZING HORMONE 20.6 mIU/mL
== END ==
LOC: M SFHCCAPE 07:42
PROVIDERS: ATTEND Family Medicine
DX: N83.201 Unspecified ovarian cyst, right side (principal); E78.00 Pure hypercholesterolemia, unspecified; Z78.0 Asymptomatic menopausal state

== ENCOUNTER → 2021-04-10 | Outpatient (REF) | payer BC ==
[2021-04-10 17:18] LABS: APPEARANCE, URINE CLOUDY (CLEAR); BILIRUBIN, URINE AUTO NEGATIVE (NEGATIVE); BLOOD, URINE BLOOD 1+ (NEGATIVE); COLOR, URINE YELLOW (YELLOW); GLUCOSE, URINE (UA) AUTO NEGATIVE (NEGATIVE); KETONE, URINE AUTO NEGATIVE (NEGATIVE); LEUKOCYTE ESTERASE, URINE AUTO TRACE (NEGATIVE); NITRITE, URINE AUTO NEGATIVE (NEGATIVE); PROTEIN, URINE AUTO NEGATIVE (NEGATIVE); UROBILINOGEN, URINE AUTO 0.2 mg/dL (0.0-2.0)
[2021-04-10 17:34] LABS: BACTERIA, URINE AUTO 1+ (NEGATIVE); MUCUS, URINE SMALL (NEGATIVE); RBC, URINE AUTO 4 /HPF (0-3); SQUAMOUS EPITHELIAL CELL UR AU 1 /HPF (0-6); WBC, URINE AUTO 11 /HPF (0-3)
== END ==
LOC: M SFHCWAGY 16:50
PROVIDERS: ATTEND Obstetrics & Gynecology
DX: N83.201 Unspecified ovarian cyst, right side (principal)

== ENCOUNTER → 2021-05-04 | Outpatient (CLI) | payer BC ==
--- NOTE | 2021-05-04 09:04 | REP ---
INDICATION: RIGHT OVARIAN CYST COMPARISON: 09/26/2020 TECHNIQUE: Transabdominal pelvic ultrasound followed by transvaginal examination for better evaluation of the endometrium and adnexa with color Doppler evaluation of the ovaries. FINDINGS: Bladder is unremarkable and measures 7.5 x 5.5 x 7.7 cm. Heterogeneous anteverted uterus measures 6.7 x 3.5 x 4.2 cm. The endometrial complex measures 7 mm thickness. 2.4 cm heterogeneous area within the uterine body is again noted and may represent ill-defined fibroid. Serpiginous calcifications along the anterior margin of the lower uterine segment remain unchanged and likely represent vascular calcifications. Bilateral ovaries are normal in vascularity without evidence for torsion. Right ovary measures 5.3 x 3.3 x 4.2 cm and includes 4.7 cm septated cyst; R I = 0.62. Left ovary measures 2.4 x 2.0 x 1.5 cm; R I = 0.73. No pelvic fluid or adnexal mass lesion IMPRESSION: 1. Possible uterine fibroid and vascular calcifications along with septated right ovarian cyst are unchanged through 06/26/2020. <Electronically signed by Rigoberto Jhaveri > 05/04/21 0901
== END ==
LOC: M WHC 08:20
PROVIDERS: ATTEND Obstetrics & Gynecology
DX: N83.201 Unspecified ovarian cyst, right side (principal)

== ENCOUNTER → 2021-05-29 | Outpatient (CLI) | payer BC ==
--- NOTE | 2021-05-29 11:23 | REPMRS ---
Patient History The patient states she had a clinical breast exam in May 29, 2021. Patient is postmenopausal. No known family history of cancer. Took hormonal contraceptives for 10 years. Tomosynthesis is performed. Volpara breast density is a. [facility] lifetime risk of breast cancer 11.7%. 10-15 lb unintentional weight loss. Covid vaccines 01/2021 Right arm. 01/2021 Right arm. Patient states no breast complaints today. Patient has signed MRS History Sheet. Digital Woman Screen Mammo: May 29, 2021 - Exam #: [id number] Bilateral CC and MLO view(s) were taken. Technologist: RT Juan David Prior study comparison: June 26, 2020, bilateral digital woman screen mammo performed at [facility]. May 06, 2019, bilateral digital woman screen mammo performed at [facility]. FINDINGS: There are scattered fibroglandular densities. There has been no change in the appearance of the mammogram from the prior studies. There is a mild amount of residual fibroglandular tissue which is fairly symmetric. There is no interval development of dominant mass, architectural distortion, or clustered microcalcification suggestive of malignancy. Assessment: BI-RADS/ACR category 1 mammogram. Negative Mammogram. Recommendation Routine screening mammogram in 1 year (for women over age 40). This mammogram was interpreted with the aid of an FDA-approved computer-aided dectection system. Electronically Signed By: Anand Lemons MD 05/29/21 1123
== END ==
LOC: M WHC 08:58
PROVIDERS: ATTEND Obstetrics & Gynecology
DX: Z12.31 Encounter for screening mammogram for malignant neoplasm of breast (principal); Z78.0 Asymptomatic menopausal state

== ENCOUNTER → 2021-05-29 | Outpatient (REF) | payer BC | LOC: M SFHCWAGY 13:18 | PROVIDERS: ATTEND Obstetrics & Gynecology | DX: Z12.4 Encounter for screening for malignant neoplasm of cervix (principal) | CPT/HCPCS: 87624; G0123 ==

== ENCOUNTER → 2021-08-15 | Outpatient (REF) | payer BC ==
[2021-08-15 16:40] LABS: APPEARANCE, URINE CLEAR (CLEAR); BACTERIA, URINE AUTO NEGATIVE (NEGATIVE); BILIRUBIN, URINE AUTO NEGATIVE (NEGATIVE); BLOOD, URINE BLOOD 2+ (NEGATIVE); COLOR, URINE YELLOW (YELLOW); GLUCOSE, URINE (UA) AUTO NEGATIVE (NEGATIVE); KETONE, URINE AUTO NEGATIVE (NEGATIVE); LEUKOCYTE ESTERASE, URINE AUTO 1+ (NEGATIVE); NITRITE, URINE AUTO NEGATIVE (NEGATIVE); PROTEIN, URINE AUTO NEGATIVE (NEGATIVE); RBC, URINE AUTO 7 /HPF (0-3); SPECIFIC GRAVITY URINE AUTO 1.019 (1.002-1.035); SQUAMOUS EPITHELIAL CELL UR AU 4 /HPF (0-6); UROBILINOGEN, URINE AUTO 0.2 mg/dL (0.0-2.0); WBC, URINE AUTO 12 /HPF (0-3)
== END ==
LOC: M SFHCCLAY 09:33
PROVIDERS: ATTEND Family Medicine
DX: N02.8 Recurrent and persistent hematuria with other morphologic changes (principal)

== ENCOUNTER → 2021-09-07 | Outpatient (REF) | payer BC | LOC: M SFHCCLAY 15:39 | PROVIDERS: ATTEND Family Medicine | DX: R30.0 Dysuria (principal) ==

== ENCOUNTER → 2021-09-25 | Outpatient (REF) | payer BC ==
[2021-09-25 11:30] LABS: APPEARANCE, URINE MANUAL TURBID (CLEAR); BILIRUBIN, URINE MANUAL NEGATIVE (NEGATIVE); BLOOD URINE MANUAL POSITIVE (NEGATIVE); COLOR, URINE MANUAL YELLOW (YELLOW); GLUCOSE, URINE (UA) MANUAL NEGATIVE (NEGATIVE); KETONE, URINE MANUAL NEGATIVE (NEGATIVE); LEUKOCYTE ESTERASE, URINE MAN NEGATIVE (NEGATIVE); NITRITE, URINE MANUAL NEGATIVE (NEGATIVE); PROTEIN, URINE MANUAL 1+ mg/dL (NEGATIVE); SPECIFIC GRAVITY,URINE MANUAL 1.025 (1.002-1.035); UROBILINOGEN, URINE MANUAL NORMAL (NORMAL)
[2021-09-25 11:37] LABS: AMORPHOUS SEDIMENT, URINE LARGE AMOUNT (NEGATIVE); BACTERIA, URINE NONE SEEN; HYALINE CAST, URINE NONE SEEN /lpf (0-1); SQUAMOUS EPITHELIAL CELL URINE NONE SEEN /hpf (SMALL AMT); WBC, URINE NONE SEEN /hpf (0-3)
== END ==
LOC: M SFHCCLAY 07:56
PROVIDERS: ATTEND Family Medicine
DX: R30.0 Dysuria (principal)

== ENCOUNTER → 2021-10-12 | Outpatient (REF) | payer BC ==
[2021-10-12 17:19] LABS: BACTERIA, URINE AUTO NEGATIVE (NEGATIVE); RBC, URINE AUTO 0 /HPF (0-3); SQUAMOUS EPITHELIAL CELL UR AU 1 /HPF (0-6); WBC, URINE AUTO 0 /HPF (0-3)
== END ==
LOC: M SMT 16:54
PROVIDERS: ATTEND Specialist
DX: N39.0 Urinary tract infection, site not specified (principal)

== ENCOUNTER → 2021-10-18 | Outpatient (REF) | payer BC ==
[2021-10-18 16:21] LABS: BLOOD UREA NITROGEN 10 MG/DL (7-18); CALCIUM LEVEL 9.1 MG/DL (8.5-10.1); CARBON DIOXIDE LEVEL 33 MEQ/L (21-32); CHLORIDE LEVEL 104 MEQ/L (98-107); CREATININE FOR GFR 0.77 MG/DL (0.55-1.30); GLOMERULAR FILTRATION RATE > 60.0 (>51); GLUCOSE, FASTING 110 MG/DL (70-100); POTASSIUM SERUM 4.2 MEQ/L (3.5-5.1); SODIUM LEVEL 141 MEQ/L (136-145)
== END ==
LOC: M SFHCCLAY 11:57
PROVIDERS: ATTEND Specialist
DX: R31.29 Other microscopic hematuria (principal)

== ENCOUNTER → 2021-10-22 | Outpatient (CLI) | payer BC ==
[~2021-10-22] MED LIST changes: +ISOVUE-370 76% 100ML VIAL As Ordered ONE
== END ==
LOC: M RAD 15:35
PROVIDERS: ATTEND Specialist
DX: R31.29 Other microscopic hematuria (principal)
CPT/HCPCS: 74178; Q9967

== ENCOUNTER → 2022-08-14 | Outpatient (CLI) | payer BC ==
[~2022-08-14] MED LIST changes: -ISOVUE-370 76% 100ML VIAL As Ordered ONE
== END ==
LOC: M CLY 09:48
PROVIDERS: ATTEND Family Medicine
DX: M25.752 Osteophyte, left hip (principal); M25.751 Osteophyte, right hip; M25.551 Pain in right hip; M25.552 Pain in left hip

== ENCOUNTER → 2022-09-23 | Outpatient (CLI) | payer BC | LOC: M WHC 09:07 | PROVIDERS: ATTEND Obstetrics & Gynecology | DX: Z12.31 Encounter for screening mammogram for malignant neoplasm of breast (principal) ==

== ENCOUNTER → 2022-09-23 | Outpatient (REF) | payer BC | LOC: M SFHCWAGY 17:21 | PROVIDERS: ATTEND Obstetrics & Gynecology | DX: Z12.4 Encounter for screening for malignant neoplasm of cervix (principal); R87.615 Unsatisfactory cytologic smear of cervix | CPT/HCPCS: 87624; G0123 ==

== ENCOUNTER → 2022-10-11 | Outpatient (CLI) | payer BC | LOC: M WHC 12:56 | PROVIDERS: ATTEND Obstetrics & Gynecology | DX: N83.291 Other ovarian cyst, right side (principal) ==

== ENCOUNTER → 2022-11-27 | Outpatient (REF) | payer BC | LOC: M PLALAB 08:13 | PROVIDERS: ATTEND Obstetrics & Gynecology | DX: N83.201 Unspecified ovarian cyst, right side (principal) ==

== ENCOUNTER → 2022-11-28 | Outpatient (CLI) | payer BC | LOC: M WHC 09:50 | PROVIDERS: ATTEND Obstetrics & Gynecology | DX: N83.201 Unspecified ovarian cyst, right side (principal) ==

== ENCOUNTER → 2023-02-13 | Outpatient (REF) | payer BC ==
[2023-02-13 11:44] LABS: ALBUMIN 4.1 G/DL (3.2-5.2); ALKALINE PHOSPHATASE 52 U/L (46-116); ALT/SGPT 31 U/L (7.0-40); AST/SGOT 14 U/L (<34); BILIRUBIN,TOTAL 1.7 MG/DL (0.3-1.2); BLOOD UREA NITROGEN 17 MG/DL (9-23); CALCIUM LEVEL 9.4 MG/DL (8.5-10.1); CARBON DIOXIDE LEVEL 30 MMOL/L (20-31); CHLORIDE LEVEL 102 MMOL/L (98-107); CHOLESTEROL LEVEL 194 MG/DL (<200); CHOLESTEROL RISK RATIO 3.75 (<5); CREATININE FOR GFR 0.66 MG/DL (0.55-1.30); GLOMERULAR FILTRATION RATE > 60.0 (>51); GLUCOSE, FASTING 116 MG/DL (60-100); HDL CHOLESTEROL 51.7 MG/DL (>40); LDL CHOLESTEROL 115.1 MG/DL (<100); NON-HDL-C 142.3 MG/DL; POTASSIUM SERUM 4.7 MMOL/L (3.5-5.1); SODIUM LEVEL 140 MMOL/L (136-145); TOTAL PROTEIN 6.8 G/DL (5.7-8.2); TRIGLYCERIDES LEVEL 136 MG/DL (<150)
[2023-02-13 11:47] LABS: BASO % 0.5 % (0.0-1.0); EOS # 0.1 10^3/uL (0.0-0.5); EOS % 1.1 % (0.0-3.0); HEMATOCRIT 44.9 % (36.0-47.0); LYMPH # 1.3 10^3/uL (1.5-5.0); LYMPH % 29.8 % (24.0-44.0); MEAN CORPUSCULAR HEMOGLOBIN 29.7 pg (27.0-33.0); MEAN CORPUSCULAR HGB CONC 33.4 g/dl (32.0-36.5); MEAN CORPUSCULAR VOLUME 88.9 fl (80.0-96.0); MONO # 0.4 10^3/uL (0.0-0.8); NEUTROPHILS # 2.6 10^3/uL (1.5-8.5); NEUTROPHILS % 59.4 % (36.0-66.0); PLATELET COUNT, AUTOMATED 287 10^3/uL (150-450); RED BLOOD COUNT 5.05 10^6/uL (4.00-5.40); WHITE BLOOD COUNT 4.4 10^3/uL (4.0-10.0)
== END ==
LOC: M SFHCCLAY 08:23
PROVIDERS: ATTEND Family Medicine
DX: I10 Essential (primary) hypertension (principal); N02.8 Recurrent and persistent hematuria with other morphologic changes; E78.00 Pure hypercholesterolemia, unspecified; R30.0 Dysuria

== ENCOUNTER → 2023-02-14 | Outpatient (REF) | payer BC ==
[2023-02-14 11:41] LABS: APPEARANCE, URINE CLEAR (CLEAR); BACTERIA, URINE AUTO NEGATIVE (NEGATIVE); BILIRUBIN, URINE AUTO NEGATIVE (NEGATIVE); BLOOD, URINE BLOOD NEGATIVE (NEGATIVE); COLOR, URINE YELLOW (YELLOW); GLUCOSE, URINE (UA) AUTO NEGATIVE (NEGATIVE); KETONE, URINE AUTO NEGATIVE (NEGATIVE); LEUKOCYTE ESTERASE, URINE AUTO NEGATIVE (NEGATIVE); MUCUS, URINE SMALL (NEGATIVE); NITRITE, URINE AUTO NEGATIVE (NEGATIVE); PROTEIN, URINE AUTO NEGATIVE (NEGATIVE); RBC, URINE AUTO 0 /HPF (0-3); SPECIFIC GRAVITY URINE AUTO 1.012 (1.002-1.035); SQUAMOUS EPITHELIAL CELL UR AU 2 /HPF (0-6); UROBILINOGEN, URINE AUTO 0.2 mg/dL (0.0-2.0); WBC, URINE AUTO 3 /HPF (0-3)
== END ==
LOC: M LABDRAWC 11:02
PROVIDERS: ATTEND Family Medicine
DX: R30.0 Dysuria (principal)

== ENCOUNTER → 2023-04-03 | Outpatient (REF) | payer BC ==
[2023-04-03 13:03] LABS: CHOLESTEROL RISK RATIO 3.38 (<5); LDL CHOLESTEROL 87.2 MG/DL (<100)
== END ==
LOC: M SFHCCLAY 08:02
PROVIDERS: ATTEND Family Medicine
DX: E78.00 Pure hypercholesterolemia, unspecified (principal)

== ENCOUNTER → 2023-06-19 | Outpatient (REF) | payer BC | LOC: M SFHCCLAY 11:47 | PROVIDERS: ATTEND Physician Assistant | DX: J03.90 Acute tonsillitis, unspecified (principal) ==

== ENCOUNTER → 2023-08-12 | Outpatient (REF) | payer BC ==
[2023-08-12 19:48] LABS: CHOLESTEROL RISK RATIO 3.48 (<5); HDL CHOLESTEROL 48.8 MG/DL (>40); LDL CHOLESTEROL 87.2 MG/DL (<100); NON-HDL-C 121.2 MG/DL
== END ==
LOC: M SFHCCLAY 09:13
PROVIDERS: ATTEND Family Medicine
DX: E78.00 Pure hypercholesterolemia, unspecified (principal)

== ENCOUNTER → 2023-10-03 | Outpatient (REF) | payer BC | LOC: M SFHCWAGY 17:34 | PROVIDERS: ATTEND Obstetrics & Gynecology | DX: Z12.4 Encounter for screening for malignant neoplasm of cervix (principal) | CPT/HCPCS: 87624; G0123 ==

== ENCOUNTER → 2023-10-03 | Outpatient (CLI) | payer BC | LOC: M WHC 09:31 | PROVIDERS: ATTEND Obstetrics & Gynecology | DX: Z12.31 Encounter for screening mammogram for malignant neoplasm of breast (principal) ==

== ENCOUNTER → 2023-12-31 | Outpatient (CLI) | payer BC | LOC: M WHC 14:59 | PROVIDERS: ATTEND Obstetrics & Gynecology | DX: N83.201 Unspecified ovarian cyst, right side (principal) ==

== ENCOUNTER → 2024-02-12 | Outpatient (REF) | payer BC ==
[2024-02-12 12:32] LABS: ALBUMIN 4.3 G/DL (3.2-5.2); ALKALINE PHOSPHATASE 60 U/L (46-116); ALT/SGPT 24 U/L (7.0-40); AST/SGOT 15 U/L (<34); BILIRUBIN,DIRECT 0.8 MG/DL (<0.4); BLOOD UREA NITROGEN 10 MG/DL (9-23); CALCIUM LEVEL 9.7 MG/DL (8.5-10.1); CARBON DIOXIDE LEVEL 30 MMOL/L (20-31); CHLORIDE LEVEL 107 MMOL/L (98-107); CREATININE FOR GFR 0.75 MG/DL (0.55-1.30); GLOMERULAR FILTRATION RATE > 60.0 (>51); GLUCOSE, FASTING 104 MG/DL (60-100); POTASSIUM SERUM 4.8 MMOL/L (3.5-5.1); SODIUM LEVEL 141 MMOL/L (136-145); TOTAL PROTEIN 6.7 G/DL (5.7-8.2)
[2024-02-12 12:36] LABS: HEMOGLOBIN A1c 5.5 % (4.0-6.0)
== END ==
LOC: M SFHCCLAY 08:51
PROVIDERS: ATTEND Family Medicine
DX: M77.11 Lateral epicondylitis, right elbow (principal); I10 Essential (primary) hypertension; R73.01 Impaired fasting glucose

== ENCOUNTER 2024-04-28 13:01 | Day surgery (SDC) | payer BC ==
[~2024-04-28] VITALS: Ht 167.6 cm; Wt 98.3 kg
[~2024-04-28 13:01] MED LIST changes: +ATOR1TAB21 PO; +LISI10TA22 PO; +NS 250 ML IV ONE
[2024-04-28] MEDS ORDERED: propofoL 200 MG/20 ML VIAL As Ordered ONE (13:47)
[2024-04-28] MEDS ORDERED: LIDOCAINE 2% 100MG/5ML SDV (FOR ANES.) As Ordered ONE (13:47)
[2024-04-28 15:21] VITALS: TEMP 97.8
[2024-04-28 15:36] VITALS: BP 120/61; O2SAT 99
== END 2024-04-28 15:42 | disposition home or self-care (01) ==
LOC: M OPP 13:01
PROVIDERS: ATTEND Internal Medicine Gastroenterology
DX: Z12.11 Encounter for screening for malignant neoplasm of colon (principal); K64.0 First degree hemorrhoids; K57.30 Diverticulosis of large intestine without perforation or abscess without bleeding; K58.9 Irritable bowel syndrome, unspecified; Z86.0100 Personal history of colon polyps, unspecified; I10 Essential (primary) hypertension; E78.00 Pure hypercholesterolemia, unspecified; Z79.899 Other long term (current) drug therapy; G54.0 Brachial plexus disorders; N05.9 Unspecified nephritic syndrome with unspecified morphologic changes; Z91.018 Allergy to other foods; Z88.2 Allergy status to sulfonamides; Z88.8 Allergy status to other drugs, medicaments and biological substances

== ENCOUNTER → 2024-08-12 | Outpatient (REF) | payer BC ==
[~2024-08-12] MED LIST changes: -NS 250 ML IV ONE
== END ==
LOC: M SFHCCLAY 10:14
PROVIDERS: ATTEND Physician Assistant
DX: Z53.9 Procedure and treatment not carried out, unspecified reason (principal)

== ENCOUNTER → 2024-08-30 | Outpatient (REF) | payer BC ==
[2024-08-30 17:56] LABS: HEMOGLOBIN A1c 5.6 % (4.0-6.0)
[2024-08-30 18:31] LABS: ALBUMIN 4.1 G/DL (3.2-5.2); ALKALINE PHOSPHATASE 55 U/L (35-104); ALT/SGPT 30 U/L (7.0-40); AST/SGOT 18 U/L (<34); BILIRUBIN,TOTAL 1.8 MG/DL (0.3-1.2); BLOOD UREA NITROGEN 14 MG/DL (9-23); CALCIUM LEVEL 9.5 MG/DL (8.5-10.1); CARBON DIOXIDE LEVEL 28 MMOL/L (20-31); CHLORIDE LEVEL 105 MMOL/L (98-107); CHOLESTEROL LEVEL 192 MG/DL (<200); CHOLESTEROL RISK RATIO 4.24 (<5); CREATININE FOR GFR 0.69 MG/DL (0.55-1.30); GLOMERULAR FILTRATION RATE > 60.0 (>51); GLUCOSE, FASTING 107 MG/DL (60-100); HDL CHOLESTEROL 45.2 MG/DL (>40); LDL CHOLESTEROL 116.6 MG/DL (<100); NON-HDL-C 146.8 MG/DL; POTASSIUM SERUM 5.1 MMOL/L (3.5-5.1); SODIUM LEVEL 141 MMOL/L (136-145); TOTAL PROTEIN 6.9 G/DL (5.7-8.2); TRIGLYCERIDES LEVEL 151 MG/DL (<150)
== END ==
LOC: M SFHCCLAY 09:51
PROVIDERS: ATTEND Physician Assistant
DX: I10 Essential (primary) hypertension (principal); E78.00 Pure hypercholesterolemia, unspecified; N90.4 Leukoplakia of vulva

== ENCOUNTER → 2025-02-10 | Outpatient (REF) | payer BC ==
[~2025-02-10] MED LIST changes: -PRAV40TA2 PO; +PRAV40TA85 PO
[2025-02-10 17:55] LABS: ALT/SGPT 30 U/L (7.0-40); AST/SGOT 25 U/L (<34); CALCIUM LEVEL 9.2 MG/DL (8.3-10.6); CARBON DIOXIDE LEVEL 30 MMOL/L (20-31); CHLORIDE LEVEL 102 MMOL/L (98-107); CHOLESTEROL LEVEL 154 MG/DL (<200); CHOLESTEROL RISK RATIO 3.50 (<5); CREATININE FOR GFR 0.72 MG/DL (0.55-1.30); GLOMERULAR FILTRATION RATE > 90.0 (>45); LDL CHOLESTEROL 78.1 MG/DL (<100); NON-HDL-C 110.1 MG/DL; POTASSIUM SERUM 4.5 MMOL/L (3.5-5.1); SODIUM LEVEL 141 MMOL/L (136-145); TRIGLYCERIDES LEVEL 160 MG/DL (<150)
[2025-02-10 18:23] LABS: ESTIMATED AVERAGE GLUCOSE 117.0 MG/DL (60-110)
== END ==
LOC: M SFHCCLAY 09:40
PROVIDERS: ATTEND Physician Assistant
DX: I10 Essential (primary) hypertension (principal); E78.00 Pure hypercholesterolemia, unspecified; N90.4 Leukoplakia of vulva; E66.9 Obesity, unspecified; Z12.31 Encounter for screening mammogram for malignant neoplasm of breast

== ENCOUNTER → 2025-02-21 | Outpatient (CLI) | payer BC | LOC: M WHC 08:37 | PROVIDERS: ATTEND Physician Assistant | DX: Z12.11 Encounter for screening for malignant neoplasm of colon (principal); R92.313 Mammographic fatty tissue density, bilateral breasts ==

== ENCOUNTER → 2025-05-20 | Outpatient (REF) | payer BC ==
[2025-05-24 13:42] LABS: HPV APTIMA Not Detected (Not Detected)
== END ==
LOC: M SFHCWAGY 15:26
PROVIDERS: ATTEND Obstetrics & Gynecology
DX: Z12.4 Encounter for screening for malignant neoplasm of cervix (principal)
CPT/HCPCS: 87624; G0123